=== PATIENT | female | born 1965 ===

== ENCOUNTER 2021-06-28 12:40 | Outpatient (REF) | payer OTHER, SELFPAY ==
--- NOTE | 2021-06-28 15:11 | MHC.AU.HAS ---
Hearing Aid Evaluation Date of Visit: 06/28/21 Historical Information: Description of Hearing: Right ear- Moderate sensorineural hearing loss rising to normal at 2000 Hz, and sloping to a mild to moderate sensorineural hearing loss through 8000 Hz. Left ear- Normal hearing through 3000 Hz, sloping to a mild to moderate SNHL 8923-6345 Hz. Current personal amplification information, if applicable: None Summary: Ms. Angel was seen at [facility] and binaural amplification was recommended to help facilitate improved communication. Discussed hearing aid options with Ms. Espinoza. She is interested in rechargeable CARLOS EDUARDO style hearing aids. She notes that she often has itching and irritation in her ears, so going with custom acrylic earmolds in order to prevent any allergic reactions. Hearing Aid Prescription: Based on the individual?s shared listening needs, communication environments, dexterity, desire for connectivity, and personal preferences, the following prescription for amplification has been made: Right ear: Management Retail Intern: Phonak Model: Audeo P70-R Battery Size: Rechargeable Color: P1 - Sand Beige Machine Sole Leveler: Size 1 M Type of Mold: Slim Tip Left ear: Left ear prescription to be same as Right Hearing Aid above: Management Retail Intern: Phonak Model: Audeo P70-R Battery Size: Rechargeable Color: P1 - Sand beige Machine Sole Leveler: Size 1 M Type of Mold: Slim Tip Plan of Care: Earmold Impressions Taken. Prior authorization to be requested. Hearing aids will be ordered once PA is received. Hearing Instrument Fitting to be scheduled when materials arrive Primary Diagnosis: H90.3 Bilateral Sensorineural Hearing Loss Signature: Provider: Elisa Funes, [facility]
== END 2021-06-28 12:41 | disposition home or self-care (01) ==
LOC: HO.HAP 12:40
PROVIDERS: Visit Provider Otolaryngology
DX: Z46.1 Encounter for fitting and adjustment of hearing aid (principal); H90.3 Sensorineural hearing loss, bilateral
CPT/HCPCS: 92591; V5275

== ENCOUNTER 2021-08-24 11:10 | Outpatient (REF) | payer OTHER, SELFPAY ==
--- NOTE | 2021-08-24 14:53 | MHC.AU.HFA ---
Hearing Instrument Fitting- Adult- Binaural Date of Visit: 08/24/21 Hearing Instruments Dispensed: Right Ear: Armature Inspector: Phonak Model: Audeo P70-R Serial Number: [id number] Repair Warranty: 10/23/2024 Loss and Damage Warranty: 10/23/2024 Battery Size: Rechargeable Color: P1 - Sand Beige Priest: Size 1 M Type of Mold: Slim Tip #[id number] Warranty 11/23/2021 Type of Wax Guard: CeruStop Left Ear: Armature Inspector: Phonak Model: Audeo P70-R Serial Number: [id number] Repair Warranty: 10/23/2024 Loss and Damage Warranty: 10/23/2024 Battery Size: Rechargeable Color: P1 - Sand beige Priest: Size 1 M Type of Mold: Slim Tip #[id number] Warranty 11/23/2021 Type of Wax Guard: CeruStop Accessories/Assistive Technology: Internal Audit Consultant Summary of Fitting: Patient was fit with binaural rechargeable CARLOS EDUARDO aids with custom earmolds to better facilitate communication and for ease of use. Ran Feedback test. Unable to perform Real Ear today due to equipment problem. Set at 100% target, SoundRecover DEACTIVATED, volume control activated, with all other features on default. Practiced insertion, use of potato loader, volume control, and changing wax guard. Patient doing well in office. Extensively counseled about consistent all day use of the aids for most benefit. Since patient has such an asymmetry, we discussed having her use both aids for a week and then just the right aid for the next week. Recommendations: Recommendations: Hearing instrument care and maintenance were discussed and practiced. See handouts for care/use instructions and battery information. A hearing instrument follow-up is recommended in 2-3 weeks. Recommendations (Other): RUN REAL EAR NEXT VISIT. Did not pair aids to patient's cell phone today. She would like to get use to the aids first. Diagnosis Code(s): Primary Diagnosis: H90.3 Bilateral Sensorineural Hearing Loss Signature: Provider: Elisa Cota, [facility]
== END 2021-08-24 11:11 | disposition home or self-care (01) ==
LOC: HO.HAP 11:10
PROVIDERS: Visit Provider Otolaryngology
DX: Z46.1 Encounter for fitting and adjustment of hearing aid (principal); H90.3 Sensorineural hearing loss, bilateral
CPT/HCPCS: V5011; V5020; V5160; V5261; V5264

== ENCOUNTER 2021-09-24 08:51 | Outpatient (REF) | payer SELFPAY | END 2021-09-24 08:52 | disposition home or self-care (01) | LOC: HO.HAP 08:51 | PROVIDERS: Visit Provider Otolaryngology | DX: Z13.89 Encounter for screening for other disorder (principal) ==